=== PATIENT | female | born 1980 | race Caucasian/White ===

== ENCOUNTER 2017-08-12 17:19 | Emergency (ER) | payer MEDICAID ==
[~2017-08-12] VITALS: Ht 180.3 cm; Wt 80.7 kg
[2017-08-12 17:23] VITALS: BP 146/90
== END 2017-08-12 19:11 | disposition left against medical advice (07) ==
LOC: ER 17:20
DX: R07.89 Other chest pain (principal); R06.02 Shortness of breath; Z53.21 Procedure and treatment not carried out due to patient leaving prior to being seen by health care provider

== ENCOUNTER 2019-02-11 15:38 | Emergency (ER) | payer MEDICAID ==
[~2019-02-11] VITALS: Ht 180.3 cm; Wt 81.8 kg
[2019-02-11 15:44] VITALS: BP 140/89
[2019-02-11] MEDS ORDERED: HYDROcodone/acetaminophen 10/325mg tab PO ONE (16:20)
[2019-02-11] MEDS ORDERED: LIDOcaine 1% w/epiNEPHrine 1:200,000 30ml vial IM ONE (16:20)
[2019-02-11] MEDS ORDERED: LORazepam 1 MG tablet PO ONE (16:20)
[2019-02-11] MEDS ORDERED: LIDOcaine 1.5% w/epinephrine 1:200,000 5ml ampul IJ ONE (17:30)
[2019-02-11] MEDS ORDERED: LIDOcaine 1% 30ml preserv. free vial IJ ONE (17:30)
[2019-02-11] MEDS ORDERED: LIDOcaine 1% W/epiNEPHrine 1:100,000 20ml vial SQ ONE (17:30)
[2019-02-12] MEDS ORDERED: ACET-3068 PO (16:10)
[2019-02-12] MEDS ORDERED: SULF1TAB49 PO (16:10)
== END 2019-02-11 19:16 | disposition home or self-care (01) ==
LOC: ER 15:40
DX: N75.0 Cyst of Bartholin's gland (principal); N76.0 Acute vaginitis; F41.9 Anxiety disorder, unspecified; Z88.8 Allergy status to other drugs, medicaments and biological substances; Z88.6 Allergy status to analgesic agent
CPT/HCPCS: 56420; 99283

== ENCOUNTER 2019-02-12 15:05 | Emergency (ER) | payer MEDICAID ==
[~2019-02-12] VITALS: Ht 180.3 cm; Wt 81.8 kg
[2019-02-12 15:25] VITALS: BP 110/72
--- NOTE | 2019-02-12 15:48 | NUR ---
PT RESTING IN BED TEARFUL,CURSING AND AGITATED AND EXPLAINING ABOUT THE PROCEDURE SHE HAD YEST AND NOW ITS MORE WORSE ,OBSERVE THE SITE OF CYST ,AREA TENDER TO TOUCH REDNESS AND SWELLING NOTED ASKED THE PT IF SHE HAD TAKEN ANY OTC PAIN MEDS LIKE MOTRIN PT SAID "NO",PT SAID SHE DOES NOT WANT LOCAL ANAEST "I WANT TO BE KNOCKED OUT ,BECAUSE ITS TOO PAINFULL."ASLO SAID SHE DOES NOT WANT PA OR SILVER [employer]LLOW[employer] ASSEMBLER TO SEE HER ,INFORMED THAT WILL REQUEST DR PINON.PT
[2019-02-12] MEDS ORDERED: ACET-3068 PO (16:10)
[2019-02-12] MEDS ORDERED: SULF1TAB49 PO (16:10)
[2019-02-12] MEDS ORDERED: sulfamethoxazole/trimethoprim DS (800/160mg) tablet PO ONE (16:15)
[2019-02-12] MEDS ORDERED: HYDROcodone/acetaminophen 5mg/325mg tablet PO ONE (16:15)
--- NOTE | 2019-02-12 16:25 | NUR ---
PT LEFT, HER FRIEND STAYED BEHIND TO WAIT FOR HER RX, SHE WAS NOT GIVEN HER MEDICATIONS BECAUSE SHE WOULD NOT COME BACK INTO THE ER, SHE TOLD REGISTRATION THAT IF SHE DID NOT COME OUT SHE WAS GOING TO LEAVE HER HERE
== END 2019-02-12 16:38 | disposition home or self-care (01) ==
LOC: ER 15:05
DX: N75.0 Cyst of Bartholin's gland (principal); Z88.6 Allergy status to analgesic agent; Z88.8 Allergy status to other drugs, medicaments and biological substances
CPT/HCPCS: 99283

== ENCOUNTER 2021-07-15 13:38 | Emergency (ER) | payer MEDICAID, OTHER ==
[~2021-07-15] VITALS: Ht 180.3 cm; Wt 87.1 kg
[2021-07-15] MEDS ORDERED: normal saline 1000ML IV soln IVB ONE (14:40)
[2021-07-15] MEDS ORDERED: diazepam inj 5 MG/ML inj. IV ONE (14:40)
[2021-07-15] MEDS ORDERED: ketorolac trometh. 30mg/ml inj. IV ONE (14:40)
[2021-07-15] MEDS ORDERED: ondansetron/PF 4mg/2ml inj IV ONE (14:40)
[2021-07-15] MEDS ORDERED: KETO10TA2 PO (15:15)
[2021-07-15] MEDS ORDERED: HYDR-3965 PO (15:15)
[2021-07-15] MEDS ORDERED: ORPH100T2 PO (15:15)
[2021-07-15 16:09] VITALS: BP 113/74
== END 2021-07-15 16:09 | disposition home or self-care (01) ==
LOC: ER 15:50
DX: S00.01XA Abrasion of scalp, initial encounter (principal); M54.50 Low back pain, unspecified; M25.552 Pain in left hip; M25.551 Pain in right hip; M54.2 Cervicalgia; Z88.8 Allergy status to other drugs, medicaments and biological substances; Z79.899 Other long term (current) drug therapy; X58.XXXA Exposure to other specified factors, initial encounter; Y93.89 Activity, other specified; Y92.89 Other specified places as the place of occurrence of the external cause; Y99.8 Other external cause status
CPT/HCPCS: 70450; 72125; 72128; 72131; 96374; 96375; 99284; J1885; J2405; J7030